=== PATIENT | male | born 1975 | race Native Hawaiian/Other Pacific Islander ===

== ENCOUNTER 2022-05-03 09:12 | Emergency (ER) | payer OTHER ==
[~2022-05-03] VITALS: Ht 167.6 cm; Wt 54.4 kg
[2022-05-03 10:18] LABS: POTASSIUM 3.2 mmol/L (3.6-5.2); SODIUM 135 mmol/L (136-145)
[2022-05-03 10:38] LABS: PLATELET COUNT 555 K/uL (142-355)
[2022-05-03 14:50] VITALS: BP 113/62; TEMP 98
== END 2022-05-03 14:50 | disposition short-term general hospital (02) ==
LOC: ED 09:33
PROVIDERS: Emergency Medicine Emergency Medical Services
DX: J85.1 Abscess of lung with pneumonia (principal); Z11.52 Encounter for screening for COVID-19; F17.210 Nicotine dependence, cigarettes, uncomplicated
CPT/HCPCS: 36415; 80048; 83605; 83735; 84484; 85007; 85027; 85379; 87040; 87077; 87185; 87205; 87635; 93005; 94664; 96360; 96361; 96365; 96366; 96375; 99284; J0456; J0696; J1885; J2930; J3370; Q9963; U0003